=== PATIENT | female | born 1995 | race Caucasian/White ===

== ENCOUNTER 2018-09-22 08:00 | Emergency (ER) | payer OTHER ==
[~2018-09-22] VITALS: Ht 170.2 cm; Wt 104.5 kg
[2018-09-22] MEDS ORDERED: ACETAMINOPHEN 500 MG TABLET PO ONE (09:00)
[2018-09-22 09:49] VITALS: BP 112/70
== END 2018-09-22 10:01 | disposition home or self-care (01) ==
LOC: EMS 08:02
DX: O26.893 Other specified pregnancy related conditions, third trimester (principal); H66.93 Otitis media, unspecified, bilateral; J06.9 Acute upper respiratory infection, unspecified; Z3A.34 34 weeks gestation of pregnancy